=== PATIENT | male | born 1990 | race Caucasian/White ===

== ENCOUNTER 2021-05-08 15:15 | Emergency (ER) | payer MEDICAID ==
[~2021-05-08] VITALS: Ht 175.3 cm; Wt 87.5 kg
[2021-05-08 15:21] VITALS: BP_SYST 1
--- NOTE | 2021-05-08 16:10 | NUR ---
Pt given d/c instructions. He refused to sign the d/c papers.
== END 2021-05-08 16:10 | disposition home or self-care (01) ==
LOC: ER 15:18
DX: M25.551 Pain in right hip (principal); V87.7XXA Person injured in collision between other specified motor vehicles (traffic), initial encounter; Y93.89 Activity, other specified; Y92.89 Other specified places as the place of occurrence of the external cause; Y99.8 Other external cause status
CPT/HCPCS: 99282